=== PATIENT | male | born 1990 | race Caucasian/White ===

== ENCOUNTER 2018-10-16 17:06 | Inpatient (IN) ==
--- NOTE | 2018-10-16 18:04 | ED ---
HPI General Chief complaint: Psychiatric Symptoms Stated complaint: Psych ELICEO Styles Time Seen by Provider: 10/16/18 18:01 History of Present Illness HPI narrative: 27-year-old male with history of PTSD presents under [place] act initiated by a psychiatrist at the [facility]. The patient reports over the past several weeks he has had suicidal thoughts. Specifically he has had thoughts of putting a bag over his body and then shooting himself. He reports access to firearms. He denies any homicidal ideation, auditory or visual hallucinations, drug or alcohol use. Symptoms are moderate with no aggravating or relieving factors. He has no other complaints at this time. Related Data Home Medications Medication Instructions Recorded Confirmed cyclobenzaprine 5 mg PO BID 10/16/18 10/16/18 tramadol 50 mg PO BID 10/16/18 10/16/18 Allergies Allergy/AdvReac Type Severity Reaction Status Date / Time No Known Allergies Allergy Verified 10/16/18 17:26 Review of Systems ROS: all other systems reviewed are negative [facility] Medical History Medical History Depression (Acute) PTSD (post-traumatic stress disorder) (Acute) Surgical History Surgical History History of hernia repair (Acute) History of microdiscectomy (Acute) Social History Social History Substance History: No History of Abuse Second Hand Smoke Exposure: Yes Smoking Status: Never smoker Tobacco Type: Cigarettes How Often Do You Have a Drink Containing Alcohol: Never Recent Travel in [facility] within the Last 8 Weeks: No Recent Out of Country Travel within the Last 8 Weeks: No Immunization History Tetanus Immunization: Unsure Exam Narrative Exam Narrative: GENERAL: Well-developed well nourished male in no acute distress SKIN: Warm and dry. HEAD: Atraumatic. Normocephalic. EYES: Pupils equal and round. No scleral icterus. No injection or drainage. ENT: No nasal bleeding or discharge. Mucous membranes pink and moist. NECK: Trachea midline. No JVD. CARDIOVASCULAR: Regular rate and rhythm. No murmur appreciated. RESPIRATORY: No accessory muscle use. Clear to auscultation. Breath sounds equal bilaterally. GASTROINTESTINAL: Abdomen soft, non-tender, nondistended. Hepatic and splenic margins not palpable. MUSCULOSKELETAL: No obvious deformities. No clubbing. No cyanosis. No edema. NEUROLOGICAL: Awake and alert. No obvious cranial nerve deficits. Motor grossly within normal limits. Normal speech. PSYCHIATRIC: Depressed mood. Insight and judgment normal. Course Initial Documented Vital Signs Temperature 98.1 F 10/16/18 17:27 Pulse Rate 70 10/16/18 17:27 Respiratory Rate 18 10/16/18 17:27 Blood Pressure 128/74 10/16/18 17:27 Pulse Oximetry 99 10/16/18 17:27 Last Documented Vital Signs Temperature 98.1 F 10/16/18 17:27 Pulse Rate 70 10/16/18 17:27 Respiratory Rate 18 10/16/18 17:27 Blood Pressure 128/74 10/16/18 17:27 Pulse Oximetry 99 10/16/18 17:27 Medical Decision Making MDM Narrative Medical decision making narrative: Mental health screening discussed with the patient. Psychiatric screen ordered. Lab work has been reviewed and is unremarkable. He is medically cleared for psychiatric disposition. Medical Screen Exam Complete: Yes Emergency Medical Condition: Yes Differential Diagnosis Differential Diagnosis: Major depressive disorder, depressive disorder not otherwise specified, acute psychosis, substance induced mood disorder, adjustment reaction Lab Data Result diagrams: 10/16/18 17:28 10/16/18 17:28 Lab Results 10/16/18 10/16/18 Range/Units 17:28 17:28 WBC 6.0 (4.0-11.0) th/mm3 RBC 5.13 (4.50-5.90) mil/mm3 Hgb 15.5 (13.0-17.0) gm/dL Hct 43.6 (39.0-51.0) % MCV 85.0 (80.0-100.0) fL MCH 30.1 (27.0-34.0) pg MCHC 35.4 (32.0-36.0) % RDW 12.4 (11.6-17.2) % Plt Count 219 (150-450) th/mm3 MPV 8.2 (7.0-11.0) fL Neut % (Auto) 56.8 (16.0-70.0) % Lymph % (Auto) 35.1 (9.0-44.0) % Dickson % (Auto) 6.6 (0.0-8.0) % Eos % (Auto) 1.2 (0.0-4.0) % Baso % (Auto) 0.3 (0.0-2.0) % Neut # (Auto) 3.4 (1.8-7.7) th/mm3 Lymph # (Auto) 2.1 (1.0-4.8) th/mm3 Dickson # (Auto) 0.4 (0.0-0.9) th/mm3 Eos # (Auto) 0.1 (0.0-0.4) th/mm3 Baso # (Auto) 0.0 (0.0-0.2) th/mm3 WBC Differential . Differential Comment Auto diff final Sodium 140 (136-145) meq/L Potassium 4.1 (3.5-5.1) meq/L Chloride 104 (98-107) meq/L Carbon Dioxide 29.7 (21.0-32.0) meq/L Anion Gap 6 (5-15) meq/L BUN 8 (7-18) mg/dL Creatinine 1.04 (0.60-1.30) mg/dL Estimated GFR 85 L (>89) mL/min Random Glucose 93 (74-106) mg/dL Calcium 9.1 (8.5-10.1) mg/dL Magnesium 2.1 (1.5-2.5) mg/dL Total Bilirubin 0.6 (0.2-1.0) mg/dL AST 23 (15-37) U/L ALT 28 (12-78) U/L Alkaline Phosphatase 73 (45-117) U/L Total Protein 7.9 (6.4-8.2) g/dL Albumin 4.4 (3.4-5.0) g/dL TSH 1.200 (0.358-3.740) uIU/mL Serum Alcohol Less than 3 (0-5) mg/dL Discharge Plan Discharge Disposition Patient Disposition: Sign Out(ED Internal Use Only) Discharge Condition Condition: Stable Discharge Details Diagnosis: Encounter for medical clearance for patient hold Physicians Team ED Provider: Perri Mehta ED Midlevel Provider: Conrad Alvarado Primary Care Provider: UNKNOWN, Rxs /Orders / Referrals /Forms Prescriptions: No Action tramadol 50 mg Tablet 50 mg PO BID RF: 0 cyclobenzaprine 5 mg Tablet 5 mg PO BID RF: 0 Status ED Status: Medically Cleared
[2018-10-16 18:16] LABS: Baso % (Auto) 0.3 % (0.0-2.0); Eos # (Auto) 0.1 th/mm3 (0.0-0.4); Eos % (Auto) 1.2 % (0.0-4.0); Hematocrit 43.6 % (39.0-51.0); Hemoglobin 15.5 gm/dL (13.0-17.0); Lymph # (Auto) 2.1 th/mm3 (1.0-4.8); Lymph % (Auto) 35.1 % (9.0-44.0); Mean Corpuscular HGB Conc 35.4 % (32.0-36.0); Mean Corpuscular Hemoglobin 30.1 pg (27.0-34.0); Mean Platelet Volume 8.2 fL (7.0-11.0); Mono # (Auto) 0.4 th/mm3 (0.0-0.9); Mono % (Auto) 6.6 % (0.0-8.0); Neut # (Auto) 3.4 th/mm3 (1.8-7.7); Neut % (Auto) 56.8 % (16.0-70.0); Platelet Count 219 th/mm3 (150-450); Red Blood Count 5.13 mil/mm3 (4.50-5.90); Red Cell Distribution Width 12.4 % (11.6-17.2)
[2018-10-16 18:57] LABS: Albumin 4.4 g/dL (3.4-5.0); Anion Gap 6 meq/L (5-15); Aspartate Aminotransferase 23 U/L (15-37); Blood Urea Nitrogen 8 mg/dL (7-18); Calcium 9.1 mg/dL (8.5-10.1); Carbon Dioxide 29.7 meq/L (21.0-32.0); Chloride 104 meq/L (98-107); Glomerular Filtration Rate 85 mL/min (>89); Glucose,Random 93 mg/dL (74-106); Magnesium 2.1 mg/dL (1.5-2.5); Potassium 4.1 meq/L (3.5-5.1); Sodium 140 meq/L (136-145)
[2018-10-16 18:58] LABS: Alanine Aminotransferase 28 U/L (12-78)
[2018-10-16 19:08] LABS: Alkaline Phosphatase 73 U/L (45-117); Total Protein 7.9 g/dL (6.4-8.2)
[2018-10-16] MEDS ORDERED: Acetaminophen 325 MG Tablet PO PRN (22:22)
[2018-10-16] MEDS ORDERED: Aluminum/Magnesium/Simethacone Susp 30 ML UDC PO PRN (22:23)
[2018-10-16] MEDS ORDERED: LORazepam 1 MG Tablet PO PRN (22:24)
[2018-10-16 22:30] LABS: Amphetamine Screen,Urine Neg (Neg); Barbiturate Screen,Urine Neg (Neg); Cannabinoid Screen,Urine Pos (Neg); Cocaine Screen,Urine Neg (Neg)
[2018-10-16 22:32] LABS: Opiate Screen,Urine Neg (Neg)
[2018-10-17 05:44] VITALS: BP 95/54; PULSE 72; RESP 18; TEMP 97.6; O2SAT 96
[2018-10-17] MEDS ORDERED: FLUoxetine 20 MG Capsule PO SCH (09:00)
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
== END 2018-10-17 14:10 | disposition home or self-care (01) | DRG 882 ==
LOC: NEPD 17:06 → NEDA 22:03 → H260 22:45
PROVIDERS: ADMIT Psychiatry & Neurology Child & Adolescent Psychiatry; ATTEND Psychiatry & Neurology Child & Adolescent Psychiatry